=== PATIENT | male | born 1985 | race Caucasian/White ===

== ENCOUNTER 2017-11-10 19:38 | Emergency (ER) | payer SELFPAY ==
[2017-11-10 19:57] VITALS: BP 158/92; RESP 28; TEMP 99.3; O2SAT 99
--- NOTE | 2017-11-10 20:36 | ED PDOC ---
HPI: Chest Pain Time Seen by Provider: 11/10/17 19:59 Chief Complaint (Nursing): Chest Pain Chief Complaint (Provider): Chest Pain History Per: Patient, Family History/Exam Limitations: no limitations Onset/Duration Of Symptoms: Hrs Current Symptoms Are (Timing): Still Present Associated Symptoms: denies: Nausea Additional Complaint(s): Raúl Singh is a 32 year old male with a past medical history of substance abuse who was brought to the ED by spouse for evaluation of chest pain, onset a few hours ago. As per spouse, patient took an ecstasy pill approximately 3 hours ago and he also had 1-2 beers at home. Spouse states that she got a call from her mother in law stating that she needed to take patient to the ED. Patient complains of difficulty moving, body aches, throat pain, thirst, and bilateral upper and lower extremity pain. He denies any fall or trauma and denies any headaches, fever, nausea, or vomiting. PMD: none provided Past Medical History Reviewed: Historical Data, Nursing Documentation, Vital Signs Vital Signs: Last Vital Signs Temp 99.3 F 11/10/17 19:54 Pulse 112 H 11/10/17 22:03 Resp 28 H 11/10/17 19:54 BP 158/92 H 11/10/17 19:54 Pulse Ox 99 11/10/17 22:03 - Medical History PMH: No Chronic Diseases - Surgical History Surgical History: No Surg Hx - Family History Family History: States: Unknown Family Hx - Social History Current smoker - smoking cessation education provided: No Alcohol: Social Drugs: Other (ecstasy) - Allergies Allergies/Adverse Reactions: Allergies Allergy/AdvReac Type Severity Reaction Status Date / Time No Known Allergies Allergy Verified 11/10/17 19:54 CRISELDA Risk Score for UA/NSTEMI - CRISELDA Risk Score Age > 64: NO 3 or more CAD Risk Factors: NO Known CAD (Stenosis greater than 50%): NO Aspirin use in past 7 days: NO Severe Angina: NO EKG ST changes greater than 0.5mm: NO Positive Cardiac Marker: NO CRISELDA Score: 0 Risk %: 5% Wells Criteria for PE - Wells Criteria for Pulmonary Embolism Clinical Signs and Symptoms of DVT: No P.E is #1 Diagnosis, or Equally Likely: No Heart Rate >100: No Immobilization at least 3 days;Surgery previous 4 weeks: No Previous, objectively diagnosed PE or DVT: No Hemoptysis: No Malignancy w/treatment within 6 months, or palliative: No Total Score: 0 Review of Systems ROS Statement: Except As Marked, All Systems Reviewed And Found Negative Constitutional: Positive for: Other (body aches). Negative for: Fever (l) ENT: Positive for: Throat Pain Cardiovascular: Positive for: Chest Pain Gastrointestinal: Negative for: Nausea, Vomiting, Abdominal Pain Musculoskeletal: Positive for: Arm Pain, Leg Pain Physical Exam - Reviewed Nursing Documentation Reviewed: Yes Vital Signs Reviewed: Yes - Physical Exam Appears: Positive for: Non-toxic, No Acute Distress Head Exam: Positive for: ATRAUMATIC, NORMAL INSPECTION, NORMOCEPHALIC Skin: Positive for: Normal Color, Warm, DRY Eye Exam: Positive for: EOMI, Normal appearance, PERRL ENT: Positive for: Normal ENT Inspection Neck: Positive for: Normal, Painless ROM, Supple Cardiovascular/Chest: Positive for: Regular Rate, Rhythm. Negative for: Murmur Respiratory: Positive for: Normal Breath Sounds. Negative for: Respiratory Distress Gastrointestinal/Abdominal: Positive for: Normal Exam, Soft. Negative for: Tenderness Back: Positive for: Normal Inspection. Negative for: L CVA Tenderness, R CVA Tenderness, Vertebral Tenderness Extremity: Positive for: Tenderness (diffuse muscle tenderness to all extremities). Negative for: Deformity, Swelling Neurologic/Psych: Positive for: Alert, Oriented. Negative for: Motor/Sensory Deficits - Laboratory Results Result Diagrams: 11/10/17 21:10 11/10/17 21:10 - ECG ECG Rhythm: Positive for: Normal QRS, Normal ST Segment, Sinus Tachycardia Rate: 112 O2 Sat by Pulse Oximetry: 99 (RA) Pulse Ox Interpretation: Normal Medical Decision Making Medical Decision Making: Time: 20:27 Impression/Differentials: chest pain: rule out ACS due to substance abuse, muscle pain and weakness: rule out rhabdomyolysis due to substance abuse, electrolyte abnormality, possible alcohol intoxication Plan: --CT Head --EKG --Alcohol Serum --BMP --CPK --Drug Screen --Troponin --CBC --Coag --CXR Patient refusing CT Head. CXR reviewed with no acute findings. Labs reviewed: unremarkable. Patient reports an improvement in symptoms and is alert and oriented x3 with a steady gait. Scribe Attestation: Documented by, Jayde Wilks acting as a scribe for Annmarie Baez MD. Provider Scribe Attestation: All medical record entries made by the Scribe were at my direction and personally dictated by me. I have reviewed the chart and agree that the record accurately reflects my personal performance of the history, physical exam, medical decision making, and the department course for this patient. I have also personally directed, reviewed, and agree with the discharge instructions and disposition. Disposition - Clinical Impression Clinical Impression: Chest pain, Substance abuse, Paresthesia, Left against medical advice - Patient ED Disposition Is Patient to be Admitted: No Doctor Will See Patient In The: Office Counseled Patient/Family Regarding: Studies Performed, Diagnosis, Need For Followup - Disposition Referrals: [facility] [Outside] Disposition: Against Medical Advice Disposition Time: 22:02 Condition: GOOD Additional Instructions: Return for worsening. Follow up with your PCP in 2-3 days. Instructions: Chest Pain, Drug Abuse and Drug Addiction (DC), Paresthesias (DC) , Leaving Against Medical Advice
[2017-11-10 21:01] VITALS: PULSE 112
[2017-11-10 21:17] LABS: BASO # 0.1 K/uL (0.0-0.2); BASO % 0.8 % (0.0-2.0); EOS % 0.3 % (0.0-4.0); HEMOGLOBIN 15.6 g/dL (12.0-18.0); LYMPH # 1.9 K/uL (1.0-4.3); LYMPH % 15.3 % (20.0-40.0); MEAN CELL VOLUME 91.7 fl (80.0-94.0); MEAN CORPUSCULAR HEMOGLOBIN 31.3 pg (27.0-31.0); MEAN CORPUSCULAR HGB CONC 34.1 g/dL (33.0-37.0); MEAN PLATELET VOLUME 8.1 fl (7.2-11.7); MONO # 0.6 K/uL (0.0-0.8); MONO % 5.2 % (0.0-10.0); NEUT # 9.6 K/uL (1.8-7.0); NEUT % 78.4 % (50.0-75.0); RBC 4.98 Mil/uL (4.40-5.90); RED CELL DISTRIBUTION WIDTH 11.8 % (11.5-14.5); WHITE BLOOD COUNT 12.2 K/uL (4.8-10.8)
[2017-11-10 21:27] LABS: BLOOD UREA NITROGEN 15 mg/dl (9-20); CALCIUM 10.3 mg/dL (8.4-10.2); GFR NON-AFRICAN AMERICAN > 60
[2017-11-10 21:33] LABS: PARTIAL THROMBOPLASTIN TIME 29.1 Seconds (25.6-37.1); PROTHROMBIN TIME 10.7 Seconds (9.8-13.1)
[2017-11-10 22:12] LABS: BARBITURATES, UR NEGATIVE (NEGATIVE); BENZODIAZEPINES, UR NEGATIVE (NEGATIVE); OPIATES, UR NEGATIVE (NEGATIVE); PHENCYCLIDINE, UR NEGATIVE (NEGATIVE)
--- NOTE | 2017-11-11 08:37 | RAD ---
Date of service: 11/10/2017 PROCEDURE: CHEST RADIOGRAPH, 1 VIEW HISTORY: chest pain COMPARISON: None available. FINDINGS: LUNGS: Clear. PLEURA: No pneumothorax or pleural fluid seen. CARDIOVASCULAR: Normal. OSSEOUS STRUCTURES: No significant abnormalities. VISUALIZED UPPER ABDOMEN: Normal. OTHER FINDINGS: None. IMPRESSION: No active disease.
--- NOTE | 2017-11-12 17:54 | CARD ---
APPROVED REPORT Date of service: 11/10/2017 EKG Measurement Heart [id number] <Conclusion> Sinus tachycardia Nonspecific T wave abnormality Abnormal ECG
== END 2017-11-10 22:09 | disposition left against medical advice (07) ==
LOC: H.ER 19:38
DX: R07.9 Chest pain, unspecified (principal); F19.10 Other psychoactive substance abuse, uncomplicated; R20.0 Anesthesia of skin
CPT/HCPCS: 71045; 80048; 82550; 84484; 85025; 85610; 85730; 99284; G0480